=== PATIENT | male | born 1995 | race Caucasian/White ===

== ENCOUNTER 2017-11-20 11:08 | Day surgery (SDC) | payer OTHER ==
[2017-11-20] MEDS ORDERED: Adacel (T-DAP) 0.5 ML VIAL ONE (11:14)
[2017-11-20] MEDS ORDERED: CEFAZOLIN/Water 2 GM/20 ML SYRINGE ONE (11:15)
[2017-11-20 11:33] LABS: #Eosinphils 0.7 thou/uL (0.0-0.7); #Lymphocytes 1.3 thou/uL (1.20-3.40); #Monocytes 0.3 thou/uL (0.11-0.59); #Neutrophils 3.4 thou/uL (1.40-6.50); %Basophils 0.7 % (0.0-1.0); %Eosinophils 12.2 % (0.0-10.0); %Lymphocytes 22.6 % (21.0-51.0); %Monocytes 5.2 % (0.0-10.0); %Neutrophils 59.4 % (42.0-75.0); Hemoglobin 14.7 g/dL (14.0-18.0); Mean Corpuscular HGB CONC 35.1 g/dL (32.0-36.0); Mean Corpuscular Hemoglobin 29.6 pg (27.0-31.0); Mean Corpuscular Volume 84.2 fL (78.0-98.0); Mean Platelet Volume 7.7 fL (7.4-10.4); Platelet Count 244 thou/uL (130-400); RBC Distribution Width 11.8 % (11.5-14.5); Red Blood Cell (RBC) Count 4.96 mill/uL (4.70-6.10); White Blood Cell (WBC) Count 5.8 thou/uL (4.8-10.8)
--- NOTE | 2017-11-20 11:53 | RAD ---
LEFT FOOT THREE VIEWS: INDICATIONS: Left foot injury. FINDINGS: There is some radiopaque material seen along the surface of the left foot, limiting the exam. There is partial amputation of the great toe, through the distal phalanx. No definite acute fracture is ev ident. IMPRESSION: 1. Radiopaque material overlying the surface of the left foot, which may be related to wound ointmen t or paint. Recommend correlation. Recommended cleansing of the skin and repeating of the left foot radiograph for improved evaluation. 2. Partial amputation of the left great toe through the great to distal phalanx. POS: [facility]
[2017-11-20 11:57] LABS: Alcohol Less than 10 mg/dL (Less than 10); Anion Gap 11 mmol/L (10-20); BUN (Urea Nitrogen) 14 mg/dL (8.9-20.6); Calc. Creatinine Clearance 0 mL/min (70-130); Calcium 9.9 mg/dL (7.8-10.44); Carbon Dioxide 29 mmol/L (22-29); Chloride 103 mmol/L (98-107); Estimated GFR-MDRD 84; Glucose 101 mg/dL (70-105); Potassium 3.5 mmol/L (3.5-5.1); Sodium 139 mmol/L (136-145)
[2017-11-20] MEDS ORDERED: Ondansetron HCl/PF 4 MG/2 ML Vial IV PRN (12:12)
[2017-11-20] MEDS ORDERED: Acetaminophen 325 MG TAB PO PRN (12:12)
[2017-11-20] MEDS ORDERED: Fentanyl 100 MCG/2 ML VIAL SLOW IVP PRN (12:12)
[2017-11-20] MEDS ORDERED: traMADol HCl 50 MG TAB PO PRN ×2 (12:12)
[2017-11-20] MEDS ORDERED: Acetaminophen/Codeine 30-300mg Tablet PO PRN ×2 (12:12)
[2017-11-20] MEDS ORDERED: RENALLY ADJUST ABX FS SCH (12:15)
[2017-11-20] MEDS ORDERED: TETANUS AND DIPHTHERIA TOX/PF 0.5 ML DISP.SYRIN IM SCH (12:15)
[2017-11-20] MEDS ORDERED: Sodium Chloride 0.9% 100 ML IV SCH (12:15)
[2017-11-20] MEDS ORDERED: CEFAZOLIN/Water 2 GM/20 ML SYRINGE SLOW IVP SCH (12:30)
--- NOTE | 2017-11-20 12:41 | CON ---
DATE OF CONSULTATION: 11/20/2017 HISTORY OF PRESENT ILLNESS: We were asked by the emergency room to see patient. The patient was at work today in the [employer] and a pipe came down on his left foot causing a partial amputation of hi s left great toe. Pain was fairly miserable until he got to the ER and had some morphine, which he s tates helps immensely. ER updated tetanus and gave 2 grams of Ancef. PAST MEDICAL HISTORY: Healthy. PAST SURGICAL HISTORY: None. FAMILY HISTORY: Noncontributory. CURRENT MEDICATIONS: None. ALLERGIES: None. REVIEW OF SYSTEMS: He is a healthy individual and has no other complaints other than the left great toe. SOCIAL HISTORY: Works in the [employer]. No alcohol, nicotine, or drug use. PHYSICAL EXAMINATION: GENERAL: Well-nourished, well-developed male, alert, pleasant, in no acute distress currently. Spee ch clear, fluent, oriented x3. HEENT: Normal exam. EXTREMITIES: Lower extremities, normal bulk and tone, other than missing half of his left great toe. It is open right now. The patient has been in the field until morning, so he is, unfortunately, qu ite dirty and will need to be cleaned up, which I explained to him. ASSESSMENT: Left great toe partial amputation. PLAN: Discussed risks and benefits of surgery versus non-surgery. He is amenable to go forth with s juan manuel. We will plan to do a washout, remove more bone in that left toe after we have cleaned extens ively, and then approximate skin edges. Again, he has had his tetanus updated and received 2 grams o f Ancef. The patient's boss is here with him. He would like to go back on light duty, as he lives [facility]. They have a place for him to stay if he is able to do light duty and his boss states it will be in a clean environment. I told them we will discuss this with myself and Dr. Colon po stoperatively. His last meal was at 5:30 this morning, just took a normal bar. We will get him set up for surgery. Tyson Escalona PA-C., dictating for Abel Colon M.D.
[2017-11-20] MEDS ORDERED: Midazolam HCl 2 mg/2 ml Vial ONE (13:38)
[2017-11-20] MEDS ORDERED: Neomycin-Polymyxin 1 ML AMP ONE (14:25)
[2017-11-20] MEDS ORDERED: Bupivacaine PF 0.5% 30 ML VIAL ONE (14:34)
[2017-11-20] MEDS ORDERED: Ketorolac Tromethamine 30 MG/ML VIAL IVP SCH (18:00)
--- NOTE | 2017-11-20 18:31 | OP ---
DATE OF OPERATION: 11/20/2017 OPERATION: Completion amputation of left great toe. PREOPERATIVE DIAGNOSIS: Partial left great toe amputation. POSTOPERATIVE DIAGNOSIS: Partial left great toe amputation. COMPLICATIONS: None. ESTIMATED BLOOD LOSS: Minimal. SURGEON: Abel Colon M.D. ANESTHESIA: General. INDICATIONS: Mr. Finley is a 22-year-old male, who has dropped a heavy pipe on his great toe. He was indicated for completion of toe amputation. Risks have been reviewed. He elected to proceed wit h the operation. DESCRIPTION OF PROCEDURE: Mr. Finley was identified in the preoperative holding area. His correct extremity was marked. He was carried to the operating room. He was positioned supine. General ane sthesia was induced. A multidisciplinary timeout was performed. The left lower extremity was preppe d and draped in sterile fashion. We began the procedure with irrigation and debridement of the toe. We excisionally debrided damaged tissue. We thoroughly irrigated with copious lavage using irrigant. Once we had clean skin edges , we excised the fragment of phalanx bone which was left, this was distal phalanx. We amputated this at the IP joint. At this point, we were able to pull the skin edges together. We reduced these and sutured with 3-0 nylon suture. A sterile dressing was applied. The patient was taken to recovery r oom in good condition without complication after sterile dressing was placed.
[2017-11-20] MEDS ORDERED: Aspirin 81 mg Enteric Coated Tablet PO SCH (21:00)
== END 2017-11-20 17:12 | disposition home or self-care (01) ==
LOC: ERS 11:08
PROVIDERS: ATTEND Orthopaedic Surgery
PROC: 0Y6Q0Z3 Detachment at Left 1st Toe, Low, Open Approach (ICD-10-PCS; principal; 2017-11-20)
DX: S98.122A Partial traumatic amputation of left great toe, initial encounter (principal); W20.8XXA Other cause of strike by thrown, projected or falling object, initial encounter; Y92.65 Oil rig as the place of occurrence of the external cause; Y99.0 Civilian activity done for income or pay
CPT/HCPCS: 80048; 80307; 83605; 85025; 85610; 90471; 90715; 96374; 96375; 96376; J2250; J2270; J3010; S0020